=== PATIENT | female | born 1990 | race Caucasian/White ===

== ENCOUNTER 2017-01-27 10:34 | Emergency (ER) | payer MEDICAID ==
[2017-01-27 10:55] VITALS: BP 113/87; PULSE 71; RESP 16; TEMP 98.1; O2SAT 95
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
[2017-01-27] MEDS ORDERED: LIDOCAINE 2% JELLY 5 ML TUBE TP ONE (11:29)
== END 2017-01-27 12:17 | disposition home or self-care (01) ==
LOC: CED 10:34
DX: Z48.02 Encounter for removal of sutures (principal); F17.200 Nicotine dependence, unspecified, uncomplicated
CPT/HCPCS: L3925